=== PATIENT | female | born 1980 | race Caucasian/White ===

== ENCOUNTER 2016-07-20 20:08 | Emergency (ER) | payer OTHER ==
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
[~2016-07-20 20:08] MED LIST: ALBUTEROL17 GM INH; AMOXICILLIN PO; BENZONATATE PO; HYCODAN60 ML 5MG/ PO; HYDROCODON-ACE1 EAC9 PO; MOBIC PO; NO MEDICATIONS; PHENERGAN25 M1 PO; RONDEC DROPS30 ML PO; ZITHROMAX PO
== END 2016-07-20 21:52 | disposition home or self-care (01) ==
LOC: SED 20:08
DX: S16.1XXA Strain of muscle, fascia and tendon at neck level, initial encounter (principal); S39.012A Strain of muscle, fascia and tendon of lower back, initial encounter; V49.00XA Driver injured in collision with unspecified motor vehicles in nontraffic accident, initial encounter
CPT/HCPCS: 72100; 96372; 99282; 99283; J1885

== ENCOUNTER 2016-10-12 14:32 | Emergency (ER) | payer SELFPAY ==
--- NOTE | ~2016-10-12 | CT4 ---
[facility] A Service of [facility] RADIOLOGY TEXT RESULTS PATIENT: ED JAVIER LOCATION: [place] : 78 UNIT #: [id number] AGE: [address]: Madiha Lopez MD SEX: F ORDER DR: [id number] [facility] [address] [place], [place] [address] [id number] E MR#: [id number] Acc #: [id number] NAME: ED JAVIER : 1980 SEX: F STUDY DATE/TIME: 10/12/2016 16:58 UNIT: [place] ROOM: STUDY DESCRIPTION: CT Abd and Pelv Wo Cont Attending Physician: Madiha Lopez M.D. Ordering Physician: Madiha Lopez M.D. Primary Care Physician: Rosalia Patel M.D. MEDICAL IMAGING REPORT This report is preliminary unless electronic signature is present EXAM CT abdomen and pelvis INDICATIONS Right flank pain and right side abdominal pain for [address] of the abdomen and pelvis without contrast. Coronal and sagittal reconstructions were obtained. This CT exam was performed with one or more of the following radiation dose reduction techniques: automatic exposure control, adjustment of mA and/or kV according to patient size, and iterative reconstruction. COMPARISON None available. FINDINGS No urinary calculi. No hydronephrosis. There is minimal stranding adjacent to the cecum. Cecum is positioned in the right upper quadrant. The adjacent appendix is completely normal. There are a few borderline enlarged lymph nodes in the right upper quadrant mesentery. This would be most consistent with a focal colitis, however if symptoms improve, followup colonoscopy could be useful. The liver, pancreas, spleen, adrenal glands are normal in appearance. Small bowel is not dilated. The abdominal aorta is normal in caliber. PELVIS: There is a small volume of free pelvic fluid. This is likely physiologic. The ovaries are unremarkable. No enlarged pelvic or inguinal lymph nodes. [facility] A Service of [facility] RADIOLOGY TEXT RESULTS PATIENT: ED JAVIER LOCATION: [place] : 78 UNIT #: [id number] AGE: [address]: Madiha Lopez MD SEX: F ORDER DR: No acute osseous abnormalities. IMPRESSION 1. Subtle stranding adjacent to the cecum. The cecum is positioned in the right upper quadrant. This is nonspecific, probably represents a small area of colitis. This diagnosis is supported by and prominence of several lymph nodes in the right lower quadrant mesentery. 2. Please note that the adjacent appendix is completely normal. 3. No urinary calculi. No hydronephrosis. Dictated by... David Hernandez M.D. THIS IS AN ELECTRONICALLY VERIFIED REPORT David Hernandez M.D. at 10/12/2016 7:18 PM JOSEMANUEL/charlotte TD: 10/12/2016 18:46 JOB #: [id number] MEDICAL IMAGING REPORT Page 1 of 1 COPY
[2016-10-12 15:36] LABS: URINE SOURCE CLEAN CATCH
[2016-10-12 15:41] LABS: BASOPHIL% 0.3 % (0-2.5); EOSINOPHIL% 0.4 % (0.0-7.0); HEMATOCRIT 39.4 % (35.0-45.0); HEMOGLOBIN 13.1 gm/dL (12.0-16.0); LYMPHOCYTE% 11.3 % (17.0-45.0); MEAN CORPUSCULAR HEMOGLOBIN 29.6 PG (28-34); MEAN CORPUSCULAR HGB CONC 33.2 g/dL (30-36); MEAN PLATELET VOLUME 8.9 FL (6.5-11.5); MONOCYTE# 0.4 X10e3 (0-1.0); MONOCYTE% 5.1 % (3.0-12.0); NEUTROPHIL% 82.9 % (40-75); PLATELET COUNT 178 X10e3 (140-420); RED BLOOD COUNT 4.42 X10e (3.90-5.30); RED CELL DISTRIBUTION WIDTH 12.8 % (11.0-15.5); WHITE BLOOD COUNT 8.5 X10e3 (4.0-10.5)
[2016-10-12 15:42] LABS: URINE APPEARANCE CLEAR; URINE BILIRUBIN NEG (NEG); URINE BLOOD NEG (NEG); URINE COLOR YELLOW; URINE GLUCOSE NEG (NEG); URINE KETONE NEG (NEG); URINE LEUKOCYTE ESTERASE NEG (NEG); URINE NITRATE NEG (NEG); URINE PH 6.5 (5-8); URINE PROTEIN NEG (NEG); URINE SPECIFIC GRAVITY 1.018 (1.003-1.035)
[2016-10-12 15:42] LABS: DIFF IND NO
[2016-10-12 15:49] LABS: CULTURE INDICATED? NO
[2016-10-12 16:08] LABS: ALBUMIN SERUM 4.2 g/dL (3.5-5.0); BILIRUBIN, DIRECT 0.1 mg/dL (0.0-0.2); BILIRUBIN,INDIRECT 0.7 mg/dL (0.0-0.9); BILIRUBIN,TOTAL 0.8 mg/dL (0.2-2.0); BUN/CREATININE RATIO 13.33; CALCIUM SERUM 8.7 mg/dL (8.4-10.2); CREATININE SERUM 0.9 mg/dL (0.6-1.4); GLOM FILT RATE Estimated 81.7 mL/min (>60); POTASSIUM 3.6 mmol/L (3.5-5.1); PROTEIN TOTAL SERUM 7.2 g/dL (6.0-8.3)
== END 2016-10-12 19:51 | disposition home or self-care (01) ==
LOC: CED 14:32
DX: K52.9 Noninfective gastroenteritis and colitis, unspecified (principal); Z90.49 Acquired absence of other specified parts of digestive tract
CPT/HCPCS: 36415; 74176; 80048; 80076; 81003; 83690; 84703; 85025; 96361; 96374; 96375; 99284; J1885; J2405

== ENCOUNTER 2016-11-09 06:57 | Emergency (ER) | payer BC ==
--- NOTE | ~2016-11-09 | CT2 ---
[facility] A Service of [facility] RADIOLOGY TEXT RESULTS PATIENT: ED JAVIER LOCATION: [facility] : [birth year] UNIT #: [id number] AGE: [address]: Thuan Lara DO SEX: F ORDER DR: [id number] [facility] [address] [place], [place] [address] [id number] E MR#: [id number] Acc #: [id number] NAME: ED JAVIER : 1980 SEX: F STUDY DATE/TIME: 11/09/2016 0950 UNIT: [facility] ROOM: STUDY DESCRIPTION: CT Abd and Pelv W Cont Attending Physician: Thuan Lara D.O. Ordering Physician: Thuan Lara D.O. Primary [facility] This report is preliminary unless electronic signature is present EXAM CT abdomen and pelvis with contrast, 11/09/2016, 0950 hours. CLINICAL HISTORY 36-year-old woman with a 3-week history of right lower quadrant pain and right flank pain worse with eating. COMPARISON 10/12/[address] images were obtained from the lung bases through the pubic symphysis with oral and intravenous contrast. Sagittal and coronal reconstructions were performed. Total exam DLP 1111 mGy-cm. This CT exam was performed with one or more of the following radiation dose reduction techniques: automatic exposure control, adjustment of mA and/or kV according to patient size, and iterative reconstruction. FINDINGS Images through the lung bases are clear of acute densities. Stable calcified granulomata on the right. Images through the abdomen with contrast demonstrate no liver lesion. The spleen, pancreas, and bile ducts are normal. There are clips consistent with prior cholecystectomy. The adrenal glands, kidneys, and aorta are normal. There is no adenopathy or ascites. The stomach is poorly opacified and poorly distended but appears normal. There is contrast throughout the small bowel which is unremarkable. There is no oral contrast material within the colon. The appendix is well seen [facility] A Service of [facility] RADIOLOGY TEXT RESULTS PATIENT: ED JAVIER LOCATION: [facility] : 78 UNIT #: [id number] AGE: [address]: Thuan Lara DO SEX: F ORDER DR: and normal. The cecum, ascending colon, transverse colon, descending colon, and sigmoid colon and rectum appear normal. The previous area of bowel wall thickening with adjacent lymph nodes at the cecum is no longer seen. CT pelvis demonstrates a normal appearance to the uterus. There is a small right adnexal cyst, likely physiologic. There is no free fluid. IMPRESSION Negative CT scan of the abdomen and pelvis performed with contrast. The previous area of wall thickening at the cecum with adjacent small lymph nodes seen on 10/12/2016 is no longer seen. The appendix is normal. There are no renal or ureteral calculi. Dictated by... Sofya Ness M.D. THIS IS AN ELECTRONICALLY VERIFIED REPORT Sofya Ness M.D. at 11/10/2016 2:31 PM SAGE/christin TD: 11/09/2016 11:19 JOB #: [id number] MEDICAL IMAGING REPORT Page 1 of 1 COPY
[2016-11-09 07:50] LABS: BASOPHIL% 0.5 % (0-2.5); EOSINOPHIL# 0.1 X10e3 (0-0.7); EOSINOPHIL% 1.1 % (0.0-7.0); HEMATOCRIT 37.5 % (35.0-45.0); HEMOGLOBIN 12.5 gm/dL (12.0-16.0); LYMPHOCYTE# 2.9 X10e3 (1.0-3.5); LYMPHOCYTE% 34.7 % (17.0-45.0); MEAN CELL VOLUME 87.4 FL (83-96); MEAN CORPUSCULAR HEMOGLOBIN 29.2 PG (28-34); MEAN CORPUSCULAR HGB CONC 33.4 g/dL (30-36); MEAN PLATELET VOLUME 8.2 FL (6.5-11.5); MONOCYTE# 0.6 X10e3 (0-1.0); MONOCYTE% 6.8 % (3.0-12.0); NEUTROPHIL# 4.8 X10e3 (1.5-7.1); NEUTROPHIL% 56.9 % (40-75); PLATELET COUNT 222 X10e3 (140-420); RED BLOOD COUNT 4.29 X10e (3.90-5.30); RED CELL DISTRIBUTION WIDTH 13.4 % (11.0-15.5); WHITE BLOOD COUNT 8.4 X10e3 (4.0-10.5)
[2016-11-09 07:51] LABS: DIFF IND NO
[2016-11-09 08:08] LABS: ALBUMIN SERUM 3.4 g/dL (3.5-5.0); BILIRUBIN, DIRECT 0.1 mg/dL (0.0-0.2); BILIRUBIN,INDIRECT 0.5 mg/dL (0.0-0.9); BILIRUBIN,TOTAL 0.6 mg/dL (0.2-2.0); BUN/CREATININE RATIO 11.11; CALCIUM SERUM 8.2 mg/dL (8.4-10.2); CREATININE SERUM 0.9 mg/dL (0.6-1.4); GLOM FILT RATE Estimated 81.7 mL/min (>60); POTASSIUM 3.5 mmol/L (3.5-5.1)
[2016-11-09 08:29] LABS: URINE SOURCE CLEAN CATCH
[2016-11-09 08:34] LABS: URINE APPEARANCE CLEAR; URINE BILIRUBIN NEG (NEG); URINE BLOOD NEG (NEG); URINE COLOR YELLOW; URINE GLUCOSE NEG (NEG); URINE KETONE NEG (NEG); URINE LEUKOCYTE ESTERASE NEG (NEG); URINE NITRATE NEG (NEG); URINE PH 6.5 (5-8); URINE PROTEIN NEG (NEG); URINE SPECIFIC GRAVITY 1.015 (1.003-1.035)
[2016-11-09 08:37] LABS: CULTURE INDICATED? NO
== END 2016-11-09 12:07 | disposition home or self-care (01) ==
LOC: CED 06:57
PROVIDERS: Emergency Medicine
DX: R10.9 Unspecified abdominal pain (principal); Z90.89 Acquired absence of other organs; Z98.51 Tubal ligation status
CPT/HCPCS: 36415; 74177; 80048; 80076; 81003; 83690; 84703; 85025; 96374; 96375; 99284; J2270; J2405; Q9967